=== PATIENT | male | born 1950 | race Caucasian/White ===

== ENCOUNTER → 2016-06-26 | Outpatient (CLI) | payer BC ==
[~2016-06-26] MED LIST: ALBUTEROL17 G1 IH; ASPIRIN81 M1 PO; AUGMENTIN PO; IBUPROFEN PO; LEVAQUIN PO; MOBIC PO; PREDNISONE10 MG/DOSE; PRILOSEC PO; RONDEC TABLET1 TAB PO; STAHIST TA1 TAB.SR . PO; ZITHROMAX PO; ZOCOR10 MG PO
--- NOTE | ~2016-06-26 | NM22 ---
[facility] A Service of [facility] RADIOLOGY TEXT RESULTS PATIENT: SASHA CERON LOCATION: US : 51 UNIT #: [id number] AGE: [address]: Dmitry Draper MD SEX: M ORDER DR: [id number] [place] [id number] [facility] [place]. [place], [place] [address] [id number] O MR#: [id number] Acc #: [id number] NAME: SASHA CERON : 1950 SEX: M STUDY DATE/TIME: 06/26/2016 12:04 UNIT: CGUS ROOM: STUDY DESCRIPTION: NM Hepatobiliary W GB Pharm Attending Physician: Dmitry Draper M.D. Referring Physician: Dmitry Draper M.D. Ordering Physician: Dmitry Draper M.D. Primary Care Physician: Dmitry Draper M.D. MEDICAL IMAGING REPORT This report is preliminary unless electronic signature is present EXAM HIDA scan with Kinevac CCK, 06/26/2016. HISTORY Biliary colic, generalized abdominal pain, and gastroesophageal reflux disease beginning 6 weeks ago. FINDINGS The patient received an intravenous injection of 5.22 mCi of technetium 99m tagged Choletec for hepatobiliary imaging. 1 hour following the injection of the radiopharmaceutical, the patient received an intravenous injection of 1.8 mcg of Kinevac. There was homogeneous distribution of the radiotracer throughout the liver. Gallbladder activity was seen by 15 minutes postinjection of the radiopharmaceutical. Following Kinevac injection, the gallbladder ejection fraction was 1.4% (normal is greater than 30%). IMPRESSION Abnormally low gallbladder ejection fraction of 1.4%. Dictated by... Hugo Blackwell M.D. THIS IS AN ELECTRONICALLY VERIFIED REPORT Hugo Blackwell M.D. at 06/27/2016 8:30 AM LUCIO/codi TD: 06/26/2016 14:47 JOB #: [id number] [facility] A Service of [facility] RADIOLOGY TEXT RESULTS PATIENT: SASHA CERON LOCATION: [facility] #: [id number] : 51 UNIT #: [id number] AGE: [address]: Dmitry Draper MD SEX: M ORDER DR: MEDICAL IMAGING REPORT Page 1 of 1 COPY
--- NOTE | ~2016-06-26 | US6 ---
[facility] A Service of [facility] RADIOLOGY TEXT RESULTS PATIENT: SASHA CERON LOCATION: [facility] : 51 UNIT #: [id number] AGE: [address]: Dmitry Draper MD SEX: M ORDER DR: [id number] [facility] [address] [facility]. [place], [place] [address] [id number] O MR#: [id number] Acc #: [id number] NAME: SASHA CERON : 1950 SEX: M STUDY DATE/TIME: 06/26/2016 10:23 UNIT: [facility] ROOM: STUDY DESCRIPTION: US Abdominal Limited Attending Physician: Dmitry Draper M.D. Referring Physician: Dmitry Draper M.D. Ordering Physician: Dmitry Draper M.D. Primary Care Physician: Dmitry Draper M.D. MEDICAL IMAGING REPORT This report is preliminary unless electronic signature is present EXAM Right upper quadrant ultrasound, 06/26/2016 HISTORY Abdomen pain for 8 weeks. Biliary colic. Abnormally elevated liver enzymes on 06/19/2016. FINDINGS The liver demonstrates an increase in echotexture with attenuation of the ultrasound beam characteristic of fatty infiltration. No cystic or solid mass lesions were seen in the liver. The intra and extrahepatic bile ducts are not dilated. The gallbladder is normal with no evidence of cholelithiasis, wall thickening or pericholecystic fluid. The common duct measures 4.0 mm. The pancreas and right kidney are normal. IMPRESSION Fatty infiltration of the liver. Otherwise negative right upper quadrant ultrasound. Dictated by... Hugo Blackwell M.D. THIS IS AN ELECTRONICALLY VERIFIED REPORT Hugo Blackwell M.D. at 06/27/2016 8:29 AM LUCIO/qasim TD: 06/26/2016 12:08 JOB #: [id number] MEDICAL IMAGING REPORT Page 1 of 1 COPY
== END | disposition home or self-care (01) ==
LOC: CGUS 10:04
DX: K80.50 Calculus of bile duct without cholangitis or cholecystitis without obstruction (principal); K76.0 Fatty (change of) liver, not elsewhere classified; R94.5 Abnormal results of liver function studies
CPT/HCPCS: 76705; 78227; A9537; J2805

== ENCOUNTER → 2016-07-26 | Outpatient (CLI) | payer BC ==
--- NOTE | ~2016-07-26 | EKG ---
PATIENT: SASHA CERON UNIT #: [id number] Ventricular Rate: 69 BPM Atrial Rate: 69 BPM P-R Interval: 174 ms QRS Duration: 88 ms Q-T Interval: 378 ms QTC Calculation(Bezet): 405 ms P [place]: 60 degrees Calculated R [place]: 21 degrees Calculated T [place]: 58 degrees Diagnosis Line: Normal sinus rhythm Diagnosis Line: Normal ECG Diagnosis Line: When compared with ECG of 07-FEB-2010 13:58, Diagnosis Line: No significant change was found Diagnosis Line: Confirmed by WARREN PATTERSON MD ([id number]) on Diagnosis Line: 07/29/2016 9:36:29 PM INTERPRETING MD: YESENIA CHINCHILLA
[2016-07-26 13:58] LABS: ALBUMIN SERUM 4.5 g/dL (3.5-5.0); BILIRUBIN,TOTAL 1.2 mg/dL (0.2-2.0); CALCIUM SERUM 9.5 mg/dL (8.4-10.2); GLOM FILT RATE Estimated 79.2 mL/min (>60); POTASSIUM 4.9 mmol/L (3.5-5.1); PROTEIN TOTAL SERUM 7.3 g/dL (6.0-8.3)
== END | disposition home or self-care (01) ==
LOC: CAMB 12:10
PROVIDERS: Surgery
DX: Z01.818 Encounter for other preprocedural examination (principal); K80.44 Calculus of bile duct with chronic cholecystitis without obstruction; R10.11 Right upper quadrant pain
CPT/HCPCS: 36415; 80053; 93005

== ENCOUNTER → 2016-08-01 | Day surgery (SDC) | payer BC ==
--- NOTE | ~2016-08-01 | OR ---
Unit #: [id number] #: [id number] Patient: SASHA CERON [address] [place], [place] [address] [id number] O MR#: [id number] NAME: SASHA CERON ROOM: Date of Procedure: 08/01/2016 Admission Date: 08/01/2016 Surgeon: Min Bowen Jr., M.D. : 1950 Attending Physician: Min Bowen Jr., M.D. Primary Care Physician: Dmitry Draper M.D. OPERATIVE REPORT INDICATIONS FOR PROCEDURE The patient is a 65-year-old white male, who has been intermittently having mid epigastric and right upper quadrant abdominal pain. He has been worked up and noted to have a poorly nataliya gallbladder with reproduction of symptoms on CCK HIDA scan. It is felt he has acalculous cholecystitis. He is brought in this time for cholecystectomy at his request. He understands the procedure including the risks, including that of continued pain and continued symptoms, intraabdominal organ injury, common duct injury, biliary leak, and bleeding, and consents. PREOPERATIVE DIAGNOSIS Chronic acalculous cholecystitis. POSTOPERATIVE DIAGNOSIS Chronic acalculous cholecystitis noting multiple omental adhesions to the gallbladder indicating previous inflammation. ANESTHESIA General with endotracheal intubation and 0.5% Marcaine with epinephrine locally. PROCEDURE PERFORMED Laparoscopic lysis of adhesions with laparoscopic cholecystectomy. DESCRIPTION OF PROCEDURE The patient was positioned in supine position. After being anesthetized and intubated, he was prepped and draped in routine fashion for laparoscopic cholecystectomy. A small supraumbilical incision was made approximately a 1 cm in length. This was carried down to the fascia. Fascia was lifted with a towel clip, and a Veress needle introduced into the abdomen. The abdomen was then inflated with CO2 gas. A 5 mm port was introduced in the abdomen followed by the camera. There was no evidence of any injury related to introduction of the port of the Veress needle. Brief intra-abdominal exploration was carried out. The patient was noted to have a partially wrapped chronically inflamed appearing gallbladder. Two 5-mm ports were placed laterally and an 11-mm port just to the right of the upper midline. The gallbladder was lifted. Multiple adhesions were taken free from the gallbladder with both hook scissors as well as blunt dissection. After mobilizing the gallbladder down on the area of the triangle of Calot, cystic duct was isolated only 1 to 2 mm in diameter and hemoclipped x4 and divided approximately 1 cm from its junction with the common duct. Common duct appeared normal. Cystic artery was Unit #: [id number] #: [id number] Patient: SASHA CERON identified, hemoclipped x3, and divided. The gallbladder was then removed from its bed with the hook cautery using a current of 20 and after it was released, it was removed through the larger port site just to the right of the upper midline along with the grasping clamp and the port. The port was replaced. Subhepatic space checked. No evidence of any bleeding from the gallbladder bed. The clips on cystic duct and cystic artery were intact with no evidence of any leak or bleeding. A small amount of bile that was spilled with manipulation of the gallbladder was then absorbed on sponge placed intra-abdominal and brought directly out. After sponge count was correct x3, the CO2 was expressed from the abdomen. The fascia in the larger port site was approximated with the neoClose technique as well as a single interrupted [id number] 0 Vicryl stitch externally. CO2 was expressed again from the abdomen and the ports removed. There was no evidence of any bleeding from the port sites. The port sites were injected with 0.5% Marcaine with epinephrine and after irrigating them and hemostasis achieved with Bovie cautery, skin edges were approximated with stainless-steel skin clips and skin stapling device. Sterile dressings were applied externally. Estimated blood loss less than 30 mL. The patient received less than 2000 mL crystalloid solution during the procedure. Sponges and instruments counts correct x3. No drains used. No complications. The patient was taken to the recovery room with stable vital signs in satisfactory condition. Dictated by... Min Bowen Jr., M.D. JMB/tirso TD: 08/02/2016 02:16 JOB #: [id number] OPERATIVE REPORT Page 1 of 1 X Min Bowen MD PROCEDURE OPERATIVE NOTE
== END | disposition home or self-care (01) ==
LOC: CSUR 10:23
DX: K81.1 Chronic cholecystitis (principal); K66.0 Peritoneal adhesions (postprocedural) (postinfection); K21.9 Gastro-esophageal reflux disease without esophagitis; F17.210 Nicotine dependence, cigarettes, uncomplicated; Z79.1 Long term (current) use of non-steroidal anti-inflammatories (NSAID); Z79.899 Other long term (current) drug therapy; Z98.41 Cataract extraction status, right eye; Z98.42 Cataract extraction status, left eye; Z98.890 Other specified postprocedural states
CPT/HCPCS: 88304; J0330; J0690; J1100; J1170; J2250; J2405; J2710; J3010